=== PATIENT | female | born 1995 | race Caucasian/White ===

== ENCOUNTER 2018-06-22 03:14 | Emergency (ER) | payer MEDICAID ==
[~2018-06-22] VITALS: Ht 175.3 cm; Wt 53.5 kg
[2018-06-22 03:34] VITALS: BP_SYST 121
[2018-06-22 06:02] VITALS: BP_SYST 121
== END 2018-06-22 06:02 | disposition home or self-care (01) ==
LOC: SED 03:14
DX: T74.21XA Adult sexual abuse, confirmed, initial encounter (principal); Y07.9 Unspecified perpetrator of maltreatment and neglect
CPT/HCPCS: 99281; 99283